=== PATIENT | male | born 1995 | race Hispanic/Latino ===

== ENCOUNTER 2021-11-10 13:30 | Emergency (ER) | payer SELFPAY ==
[2021-11-10] MEDS ORDERED: TETRACAINE HCL 0.5% 4ML OPTH ONE (13:49)
[2021-11-10] MEDS ORDERED: FLUORESCEIN SODIUM 1 MG/WRAP ONE (13:52)
--- NOTE | 2021-11-10 14:01 | ER ---
Nurse's Notes [facility] Name: Miguel Ángel Carl Age: 26 yrs Sex: Male : 1995 Arrival Date: 11/10/2021 Time: 13:32 Bed 12 Private MD: Diagnosis: Unspecified acute conjunctivitis, left eye Presentation: 11/10 13:40 Chief complaint: Patient states: pt presented to ED reporting left eye pain, redness vanegas and as if something is inside the eye. Coronavirus screen: Vaccine status: Patient reports being unvaccinated. Ebola Screen: Patient denies travel to an Ebola-affected area in the 21 days before illness onset. Mechanism of Injury: No Mechanism of Injury. The patient reports a positive loss of vision. The patient's loss of vision began gradually. Initial Sepsis Screen: Does the patient meet any 2 criteria? No. Patient's initial sepsis screen is negative. Does the patient have a suspected source of infection? No. Patient's initial sepsis screen is negative. Risk Assessment: Do you want to hurt yourself or someone else? Patient reports no desire to harm self or others. Onset of symptoms was November 10, 2021. 13:40 Method Of Arrival: Ambulatory vanegas 13:40 Acuity: MICHAEL 4 vanegas Triage Assessment: 13:42 General: Appears in no apparent distress. General: Behavior is calm, cooperative. Pain: vanegas Complains of pain in left eye. EENT: Reports blurred vision in left outer canthus, outer aspect of conjuctiva of left eye, iris of left eye, inner aspect of conjunctiva of left eye and left inner canthus pain. Historical: - Allergies: 13:42 No Known Allergies; vanegas - Home Meds: 13:42 None [Active]; vanegas - PMHx: 13:42 None; vanegas - PSHx: 13:42 None; vanegas - Immunization history:: Adult Immunizations up to date. - Social history:: Smoking status: Patient reports the use of cigarette tobacco products, smokes one-half pack cigarettes per day. - Family history:: not pertinent. - Hospitalizations: : No recent hospitalization is reported. Screenin:09 Abuse screen: Denies threats or abuse. Denies injuries from another. Nutritional vanegas screening: No deficits noted. Tuberculosis screening: No symptoms or risk factors identified. Fall Risk None identified. Assessment: 14:09 EENT: Eyes are tearing on outer aspect of conjuctiva of left eye, iris of left eye and vanegas inner aspect of conjunctiva of left eye Sclera/Cornea are reddened in outer aspect of conjuctiva of left eye, iris of left eye and inner aspect of conjunctiva of left eye. Vital Signs: 13:40 BP 121 / 71; Pulse 70; Resp 18; Temp 97.4; Pulse Ox 99% ; Weight 97.52 kg; Height 5 ft. vanegas 9 in. (175.26 cm); 13:40 Body Mass Index 31.75 (97.52 kg, 175.26 cm) vanegas ED Course: 13:32 Patient arrived in ED. kz 13:42 Triage completed. vanegas 13:44 Jung Tee MD is Attending Physician. rn 14:01 Cha Villalpando MD is Referral Physician. rn 14:07 Yudy Joseph RN is Primary Nurse. iw 14:09 Patient has correct armband on for positive identification. vanegas 14:09 No provider procedures requiring assistance completed. vanegas 14:10 Arm band placed on. vanegas 14:14 Patient did not have IV access during this emergency room visit. iw Administered Medications: No medications were administered Outcome: 14:01 Discharge ordered by . rn 14:13 Discharged to home ambulatory. iw 14:13 Condition: good 14:13 Discharge instructions given to patient, Instructed on discharge instructions, follow up and referral plans. medication usage, Demonstrated understanding of instructions, follow-up care, medications, Prescriptions given X 2. 14:14 Patient left the ED. iw Signatures: Yudy Joseph, RN HARSHA Jung Tee MD MD rn Au-Stager, Heather, RN RN ha Zapata, Kelly kjourdan
--- NOTE | 2021-11-10 14:02 | EDPHYS ---
Physician Documentation [facility] Name: Miguel Ángel Carl Age: 26 yrs Sex: Male : 1995 Arrival Date: 11/10/2021 Time: 13:32 Bed 12 Private MD: ED Physician Jung Tee HPI: 11/10 13:56 This 26 yrs old Male presents to ER via Ambulatory with complaints of Eye Pain - Left. rn 13:56 The patient is experiencing foreign body sensation, pain, redness, tearing, The patient rn sustained None. to the left eye, caused by an unknown mechanism. Onset: The symptoms/episode began/occurred yesterday. Duration: the symptoms are continuous. Aggravated by rubbing, Alleviated by nothing. Associated signs and symptoms: Pertinent positives: None. Pertinent negatives: fever, headache, runny nose. Patient does not utilize any form of vision correction. Severity of symptoms: At their worst the symptoms were moderate in the emergency department the symptoms are unchanged. The patient has not experienced similar symptoms in the past. The patient has not recently seen a physician. Pt reports left eye redness and foreign body sensation after got home from work yesterday. Denies any injury or splash to eye, states wears goggles/eye protection at work, but eye did not start to hurt until got home from work. No vision changes. No fever. No headache. Reports watery eye. . Historical: - Allergies: 13:42 No Known Allergies; vanegas - Home Meds: 13:42 None [Active]; vanegas - PMHx: 13:42 None; vanegas - PSHx: 13:42 None; vanegas - Immunization history:: Adult Immunizations up to date. - Social history:: Smoking status: Patient reports the use of cigarette tobacco products, smokes one-half pack cigarettes per day. - Family history:: not pertinent. - Hospitalizations: : No recent hospitalization is reported. ROS: 13:56 Constitutional: Negative for fever, chills, and weight loss, Eyes: + left eye redness rn and drainage. ENT: Negative for injury, pain, and discharge, Neck: Negative for injury, pain, and swelling, Neuro: Negative for headache, weakness, numbness, tingling, and seizure. Exam: 13:56 Constitutional: This is a well developed, well nourished patient who is awake, alert, rn and in no acute distress. Head/Face: Normocephalic, atraumatic. Eyes: +injected left conjunctiva, no fluorescein uptake on exam, no foreign body, pain resolved with tetracaine. Tonopen used to measure IOP, was 20. Vital Signs: 13:40 BP 121 / 71; Pulse 70; Resp 18; Temp 97.4; Pulse Ox 99% ; Weight 97.52 kg; Height 5 ft. vanegas 9 in. (175.26 cm); 13:40 Body Mass Index 31.75 (97.52 kg, 175.26 cm) vanegas MDM: 13:44 Patient medically screened. rn 13:56 Differential diagnosis: Corneal abrasion of Foreign body in left eye. Acute glaucoma in rn Data reviewed: vital signs, nurses notes, and as a result, I will discharge patient. Counseling: I had a detailed discussion with the patient and/or guardian regarding: the historical points, exam findings, and any diagnostic results supporting the discharge/admit diagnosis, the need for outpatient follow up, to return to the emergency department if symptoms worsen or persist or if there are any questions or concerns that arise at home. Response to treatment: the patient's symptoms have markedly improved after treatment, and as a result, I will discharge patient. Special discussion: I discussed with the patient/guardian in detail that at this point there is no indication for admission to the hospital. It is understood, however, that if the symptoms persist or worsen the patient needs to return immediately for re-evaluation. ED course: Eye irrigated by me with saline, patient states feels much better. Will dc home with ophtho f/u. . Administered Medications: No medications were administered Disposition Summary: 11/10/21 14:01 Discharge Ordered Location: Home rn Problem: new rn Symptoms: have improved rn Condition: Stable rn Diagnosis - Unspecified acute conjunctivitis, left eye rn Followup: rn - With: Cha Villalpando MD - When: As needed - Reason: Recheck today's complaints, Re-evaluation by your physician Discharge Instructions: - Discharge Summary Sheet rn - Allergic Conjunctivitis, Adult rn - Chemical Conjunctivitis, Adult rn - How to Use Eye Drops and Eye Ointments rn - Viral Conjunctivitis, Adult rn Forms: - Medication Reconciliation Form rn - Thank You Letter rn - Antibiotic ornament setter - Prescription Opioid Use rn Prescriptions: - Vigamox 0.5 % Ophthalmic Drops - instill 1 drop by OPHTHALMIC route every 8 hours for 7 days; 5 milliliter; rn Refills: 0, Product Selection Permitted - Acular 0.5 % Ophthalmic Drops - instill 1 drop by OPHTHALMIC route every 6 hours into affected eye(s); 5 rn milliliter; Refills: 0, Product Selection Permitted Signatures: Jung Tee MD MD rn Erika Barry RN RN vanegas
[2021-11-10 14:19] VITALS: BP 121/71; TEMP 97.4; O2SAT 99
== END 2021-11-10 14:14 | disposition home or self-care (01) ==
LOC: ER 13:30
DX: H10.32 Unspecified acute conjunctivitis, left eye (principal); F17.210 Nicotine dependence, cigarettes, uncomplicated
CPT/HCPCS: 99282

== ENCOUNTER 2023-04-24 11:52 | Emergency (ER) | payer SELFPAY ==
[2023-04-24] MEDS ORDERED: FLUORESCEIN SODIUM 1 MG/WRAP ONE (12:35)
[2023-04-24] MEDS ORDERED: TETRACAINE HCL 0.5% 4ML OPTH ONE (12:35)
--- NOTE | 2023-04-24 12:58 | EDPHYS ---
Physician Documentation [facility] Name: Miguel Ángel Carl Age: 27 yrs Sex: Male : 1995 Arrival Date: 04/24/2023 Time: 11:52 Bed 7 Private MD: ED Physician Tata Johnson HPI: 04/24 13:37 This 27 yrs old Male presents to ER via Ambulatory with complaints of Eye kb Injury, Eye Pain. 13:38 The patient is experiencing pain, redness, The patient sustained None. to the left eye. kb Onset: The symptoms/episode began/occurred 3 day(s) ago. Duration: the symptoms are continuous. Aggravated by nothing. Alleviated by nothing. Associated signs and symptoms: Pertinent positives: None. Pertinent negatives: None. Severity of symptoms: At their worst the symptoms were moderate in the emergency department the symptoms are unchanged. The patient has not experienced similar symptoms in the past. The patient has not recently seen a physician. Pt reports redness and pain to left eye that started Peter. 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 States he forgot to lower his shield . Historical: - Allergies: 12:21 No Known Allergies; iw - Home Meds: 12:21 None [Active]; iw - PMHx: 12:21 None; iw - PSHx: 12:21 None; iw - Immunization history:: Adult Immunizations. - Social history:: Smoking status: unknown. ROS: 13:36 Constitutional: Negative for fever, chills, and weight loss. kb 13:36 Eyes: Positive for pain, redness. 13:36 All other systems are negative. Exam: 13:36 Constitutional: This is a well developed, well nourished patient who is awake, alert, kb and in no acute distress. Head/Face: Normocephalic, atraumatic. Cardiovascular: Regular rate and rhythm with a normal S1 and S2. No gallops, murmurs, or rubs. No pulse deficits. Respiratory: Respirations even and unlabored. No increased work of breathing. Talking in full sentences Skin: Warm, dry with normal turgor. Normal color. MS/ Extremity: Pulses equal, no cyanosis. Neurovascular intact. Full, normal range of motion. Neuro: Awake and alert, GCS 15, oriented to person, place, time, and situation. Moves all extremities. Normal gait. 13:36 Eyes: Periorbital structures: appear normal, Pupils: equal, round, and reactive to light and accomodation, Extraocular movements: intact throughout, Conjunctiva: injected, in the left eye, Corneas: abrasion, is not appreciated, foreign body, is not appreciated, a fluorescein strip employed to appreciate the findings. Vital Signs: 12:19 BP 136 / 74; Pulse 83; Resp 16; Temp 98.1; Pulse Ox 99% on R/A; iw MDM: 12:02 Patient medically screened. kb 13:37 Differential diagnosis: Corneal abrasion of Corneal ulcer of Foreign body in kb Ultraviolet keratitis in left eye. Data reviewed: vital signs, nurses notes. Counseling: I had a detailed discussion with the patient and/or guardian regarding the historical points, exam findings, and any diagnostic results supporting the discharge/admit diagnosis, the need for outpatient follow up, an opthalmologist, to return to the emergency department if symptoms worsen or persist or if there are any questions or concerns that arise at home. 04/24 12:08 Order name: Eye Tray; Complete Time: 12:24 kb 04/24 12:08 Order name: Fluoresene Opth strip; Complete Time: 12:24 kb Administered Medications: 12:31 Drug: Tetracaine Ophthalmic Drops 0.5 % 1 drops Route: Ophthalmic; Site: left eye; Disposition Summary: 04/24/23 12:57 Discharge Ordered Location: Home kb Condition: Stable kb Diagnosis - Unspecified conjunctivitis kb Followup: kb - With: Emergency Department - When: As needed - Reason: Worsening of condition Followup: kb - With: Private Physician - When: 2 - 3 days - Reason: Recheck today's complaints, Continuance of care, Re-evaluation by your physician Discharge Instructions: - Discharge Summary Sheet kb - Ultraviolet Keratitis, [id number] kb - Bacterial Conjunctivitis, Adult, [id number] kb Forms: - Medication Reconciliation Form kb - Thank You Letter kb - Antibiotic Education kb - Prescription Opioid Use kb - Patient Portal Instructions kb - Leadership Thank You Letter kb Prescriptions: - Erythromycin 5 mg/gram (0.5 %) Ophthalmic Ointment - apply 1 centimeter by OPHTHALMIC route 2-3 times daily for 7 days; 1 unit; Refills: 0, Product Selection Permitted Signatures: Gisel Bradford FNP-C [employer] WORKER-Ckb Yudy Joseph, RN RN iw Erika Stevenson, RN RN hb
--- NOTE | 2023-04-24 12:58 | ER ---
Nurse's Notes 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 Coronavirus screen: At this time, the client does not indicate any symptoms associated with coronavirus-19. Ebola Screen: Patient negative for fever greater than or equal to 101.5 degrees Fahrenheit, and additional compatible Ebola Virus Disease symptoms Patient denies exposure to infectious person. Patient denies travel to an Ebola-affected area in the 21 days before illness onset. No symptoms or risks identified at this time. The patient denies any loss of vision. Initial Sepsis Screen: Does the patient meet any 2 criteria? No. Patient's initial sepsis screen is negative. Does the patient have a suspected source of infection? No. Patient's initial sepsis screen is negative. Risk Assessment: Do you want to hurt yourself or someone else? Patient reports no desire to harm self or others. 12:19 Method Of Arrival: Ambulatory iw 12:19 Acuity: MICHAEL 4 iw Historical: - Allergies: 12:21 No Known Allergies; iw - Home Meds: 12:21 None [Active]; iw - PMHx: 12:21 None; iw - PSHx: 12:21 None; iw - Immunization history:: Adult Immunizations. - Social history:: Smoking status: unknown. Screenin:22 [facility] ED Fall Risk Assessment (Adult) Score/Fall Risk Level 0 - 2 = Low Risk hb Oriented to surroundings, Maintained a safe environment. Abuse screen: Denies threats or abuse. Denies injuries from another. Nutritional screening: No deficits noted. Tuberculosis screening: No symptoms or risk factors identified. Assessment: 12:22 General: Appears in no apparent distress. Behavior is calm, cooperative. Pain: Pain hb currently is 3 out of 10 on a pain scale. Neuro: Level of Consciousness is awake, alert, obeys commands, Oriented to person, place, time, situation. Cardiovascular: Patient's skin is warm and dry. Respiratory: Respiratory effort is even, unlabored, Respiratory pattern is regular, symmetrical. GI: No signs and/or symptoms were reported involving the gastrointestinal system. : No signs and/or symptoms were reported regarding the genitourinary system. EENT: Reports left eye pain, redness, and discharge . Derm: Skin is pink, warm \T\ dry. Musculoskeletal: No signs and/or symptoms reported regarding the musculoskeletal system. 13:02 Reassessment: Patient appears in no apparent distress at this time. Patient and/or hb family updated on plan of care and expected duration. Pain level reassessed. Patient is alert, oriented x 3, equal unlabored respirations, skin warm/dry/pink. Vital Signs: 12:19 BP 136 / 74; Pulse 83; Resp 16; Temp 98.1; Pulse Ox 99% on R/A; iw ED Course: 11:54 Patient arrived in ED. ts1 12:02 Gisel Bradford FNP-C is [facility]. kb 12:02 Tata Johnson MD is Attending Physician. kb 12:21 Triage completed. iw 12:21 Arm band placed on. iw 12:22 Patient has correct armband on for positive identification. Provided Education on: . hb 12:24 Erika Stevenson, RN is Primary Nurse. hb 13:02 No provider procedures requiring assistance completed. Patient did not have IV access hb during this emergency room visit. Administered Medications: 12:31 Drug: Tetracaine Ophthalmic Drops 0.5 % 1 drops Route: Ophthalmic; Site: left eye; hb Medication: 12:22 VIS not applicable for this client. hb Outcome: 12:57 Discharge ordered by . kb 13:02 Discharged to home ambulatory. hb 13:02 Condition: stable 13:02 Discharge instructions given to patient, Instructed on discharge instructions, follow up and referral plans. medication usage, Demonstrated understanding of instructions, follow-up care, medications, Prescriptions given X 1. 13:14 Patient left the ED. hb Signatures: Gisel Bradford FNP-C FNP-Ckb Williams, Irene, RN RN Erika Stevenson RN RN Diana Avendano, ANA PAS ts1
[2023-04-24 13:20] VITALS: BP 136/74; TEMP 98.1; O2SAT 99
== END 2023-04-24 13:14 | disposition home or self-care (01) ==
LOC: ER 11:52
DX: H10.9 Unspecified conjunctivitis (principal)
CPT/HCPCS: 99283

== ENCOUNTER 2023-04-26 16:17 | Emergency (ER) | payer SELFPAY ==
--- NOTE | 2023-04-26 16:45 | EDPHYS ---
Physician Documentation [facility] Name: Miguel Ángel Carl Age: 27 yrs Sex: Male : 1995 Arrival Date: 04/26/2023 Time: 16:17 Bed 12 Private MD: ED Physician Erasmo Mccarty HPI: 04/26 16:52 This 27 yrs old Male presents to ER via Ambulatory with complaints of Eye cp3 Problem. 16:52 Patient is a 27-year-old male who was seen in the ED 2 days ago for a left cp3 conjunctivitis and keratitis who endorses that the pain is improved and photophobia is improved with the antibiotic ointment that we prescribed for his eye is making his vision blurry wants to see if he can change that out. Patient endorses improved redness. No fever, chills, nausea, vomiting. The patient has not experienced similar symptoms in the past. The patient has been recently seen at the [facility] Emergency Department, this week. Historical: - Allergies: 16:25 No Known Allergies; iw - Home Meds: 16:25 None [Active]; iw - PMHx: 16:25 None; iw - Immunization history:: Adult Immunizations up to date. - Social history:: Smoking status: Patient denies any tobacco usage or history of. - Family history:: not pertinent. - Hospitalizations: : No recent hospitalization is reported. - History obtained from: Spoke with provider who cared for patient. Discharge with erythromycin ointment. Mild uptake on fluorescein exam. ROS: 16:52 Constitutional: Negative for fever, chills, and weight loss, ENT: Negative for injury, cp3 pain, and discharge, Neck: Negative for injury, pain, and swelling, Cardiovascular: Negative for chest pain, palpitations, and edema, Respiratory: Negative for shortness of breath, cough, wheezing, and pleuritic chest pain, Abdomen/GI: Negative for abdominal pain, nausea, vomiting, diarrhea, and constipation, Back: Negative for injury and pain, MS/Extremity: Negative for injury and deformity, Skin: Negative for injury, rash, and discoloration, Neuro: Negative for headache, weakness, numbness, tingling, and seizure, Psych: Negative for depression, anxiety, suicide ideation, homicidal ideation, and hallucinations, Allergy/Immunology: Negative for hives, rash, and allergies, Endocrine: Negative for neck swelling, polydipsia, polyuria, polyphagia, and marked weight changes, Hematologic/Lymphatic: Negative for swollen nodes, abnormal bleeding, and unusual bruising. 16:52 Eyes: Positive for blurry vision, pain, photophobia, redness. cp3 Exam: 16:52 Visual Acuity: I have reviewed the nursing documentation. cp3 16:52 Constitutional: This is a well developed, well nourished patient who is awake, alert, and in no acute distress. Head/Face: Normocephalic, atraumatic. ENT: Nares patent. No nasal discharge, no septal abnormalities noted. Tympanic membranes are normal and external auditory canals are clear. Oropharynx with no redness, swelling, or masses, exudates, or evidence of obstruction, uvula midline. Mucous membranes moist. Neck: Trachea midline, no thyromegaly or masses palpated, and no cervical lymphadenopathy. Supple, full range of motion without nuchal rigidity, or vertebral point tenderness. No Meningismus. Chest/axilla: Normal chest wall appearance and motion. Nontender with no deformity. No lesions are appreciated. Cardiovascular: Regular rate and rhythm with a normal S1 and S2. No gallops, murmurs, or rubs. Normal PMI, no JVD. No pulse deficits. Respiratory: Lungs have equal breath sounds bilaterally, clear to auscultation and percussion. No rales, rhonchi or wheezes noted. No increased work of breathing, no retractions or nasal flaring. Abdomen/GI: Soft, non-tender, with normal bowel sounds. No distension or tympany. No guarding or rebound. No evidence of tenderness throughout. Back: No spinal tenderness. No costovertebral tenderness. Full range of motion. 16:52 Eyes: Pupils: equal, round, and reactive to light and accomodation, Extraocular movements: intact throughout, Conjunctiva: injected, Corneas: abrasion, Sclera: Vital Signs: 16:24 BP 133 / 70; Pulse 82; Resp 16; Temp 98.1; Pulse Ox 100% on R/A; Weight 99.79 kg; iw Height 5 ft. 10 in. ; 16:24 Body Mass Index 31.57 (99.79 kg, 177.8 cm) iw MDM: 16:21 Patient medically screened. cp3 16:52 Differential diagnosis: Corneal abrasion of Chemical conjunctivitis in left eye. cp3 16:52 Data reviewed: vital signs, nurses notes. cp3 Administered Medications: No medications were administered Disposition Summary: 04/26/23 16:45 Discharge Ordered Location: Home cp3 Condition: Stable cp3 Diagnosis - Unspecified conjunctivitis cp3 - Photokeratitis, left eye cp3 Discharge Instructions: - Discharge Summary Sheet cp3 - Chemical Conjunctivitis, Adult cp3 - Ultraviolet Keratitis, [id number] cp3 Forms: - Medication Reconciliation Form cp3 - Thank You Letter cp3 - Antibiotic Education cp3 - Prescription Opioid Use cp3 - Patient Portal Instructions cp3 - Leadership Thank You Letter cp3 Prescriptions: - Tobradex - use 2 drop by OPHTHALMIC route 3 times per day for 5 days; 5 milliliter; cp3 Refills: 0, Product Selection Permitted Signatures: Erasmo Mccarty MD MD cp3 Yudy Joseph RN RN iw Breneman, Rola Del Rio RN RN mb9
--- NOTE | 2023-04-26 16:45 | ER ---
Nurse's Notes [facility] Name: Miguel Ángel Carl Age: 27 yrs Sex: Male : 1995 Arrival Date: 04/26/2023 Time: 16:17 Bed 12 Private MD: Diagnosis: Unspecified conjunctivitis;Photokeratitis, left eye Presentation: 04/26 16:24 Chief complaint: Patient states: was seen here on Tuesday and prescribed antibiotic eye iw drops for conjunctivitis in let eye, not getting better , vision is blurry , was also diagnosed with UV Keratitis from welding. Coronavirus screen: At this time, the client does not indicate any symptoms associated with coronavirus-19. Ebola Screen: Patient negative for fever greater than or equal to 101.5 degrees Fahrenheit, and additional compatible Ebola Virus Disease symptoms Patient denies exposure to infectious person. Patient denies travel to an Ebola-affected area in the 21 days before illness onset. No symptoms or risks identified at this time. Initial Sepsis Screen: Does the patient meet any 2 criteria? No. Patient's initial sepsis screen is negative. Does the patient have a suspected source of infection? No. Patient's initial sepsis screen is negative. Risk Assessment: Do you want to hurt yourself or someone else? Patient reports no desire to harm self or others. Onset of symptoms was April 22, 2023. 16:24 Method Of Arrival: Ambulatory iw 16:24 Acuity: MICHAEL 4 iw Historical: - Allergies: 16:25 No Known Allergies; iw - Home Meds: 16:25 None [Active]; iw - PMHx: 16:25 None; iw - Immunization history:: Adult Immunizations up to date. - Social history:: Smoking status: Patient denies any tobacco usage or history of. - Family history:: not pertinent. - Hospitalizations: : No recent hospitalization is reported. - History obtained from: Spoke with provider who cared for patient. Discharge with erythromycin ointment. Mild uptake on fluorescein exam. Screenin:28 [facility] ED Fall Risk Assessment (Adult) History of falling in the last 3 months, mb9 including since admission No falls in past 3 months (0 pts) Confusion or Disorientation No (0 pts) Intoxicated or Sedated No (0 pts) Impaired Gait No (0 pts) Mobility Assist Device Used No (0 pt) Altered Elimination No (0 pt) Score/Fall Risk Level 0 - 2 = Low Risk Oriented to surroundings, Maintained a safe environment, Educated pt \T\ family on fall prevention, incl call for assistance when getting out of bed. Abuse screen: Denies threats or abuse. Nutritional screening: No deficits noted. Tuberculosis screening: No symptoms or risk factors identified. Assessment: 16:43 General: Appears in no apparent distress. Behavior is calm, cooperative. Pain: Denies mb9 pain. Neuro: Morrison Agitation-Sedation Scale (RASS): 0 - Alert and Calm Level of Consciousness is awake, alert, obeys commands, Oriented to person, place, time, situation, Appropriate for age. Cardiovascular: Patient's skin is warm and dry. Respiratory: Airway is patent Respiratory effort is even, unlabored, Respiratory pattern is regular, symmetrical, Breath sounds are clear bilaterally. GI: No signs and/or symptoms were reported involving the gastrointestinal system. : No signs and/or symptoms were reported regarding the genitourinary system. EENT: Sclera/Cornea are reddened in outer aspect of conjuctiva of left eye, iris of left eye and inner aspect of conjunctiva of left eye. Derm: Skin is pink, warm \T\ dry. Musculoskeletal: Range of motion: intact in all extremities. Vital Signs: 16:24 BP 133 / 70; Pulse 82; Resp 16; Temp 98.1; Pulse Ox 100% on R/A; Weight 99.79 kg; iw Height 5 ft. 10 in. ; 16:24 Body Mass Index 31.57 (99.79 kg, 177.8 cm) iw ED Course: 16:21 Patient arrived in ED. mg5 16:21 Erasmo Mccarty MD is Attending Physician. cp3 16:25 Triage completed. iw 16:25 Arm band placed on. iw 16:28 Rola Anderson RN is Primary Nurse. mb9 16:29 Placed in gown. Bed in low position. Call light in reach. Side rails up X 1. Client mb9 placed on continuous cardiac and pulse oximetry monitoring. NIBP monitoring applied. 16:29 No provider procedures requiring assistance completed. mb9 16:55 Patient did not have IV access during this emergency room visit. mb9 Administered Medications: No medications were administered Medication: 16:29 VIS not applicable for this client. mb9 Outcome: 16:45 Discharge ordered by . cp3 16:55 Discharged to home ambulatory. mb9 16:55 Condition: stable 16:55 Discharge instructions given to patient, Instructed on discharge instructions, follow up and referral plans. Demonstrated understanding of instructions, follow-up care, medications, Prescriptions given X 1. 16:55 Patient left the ED. mb9 Signatures: Erasmo Mccarty MD MD cp3 Yudy Joseph RN RN Rola Oliveira RN RN mb9 Susan Caputo mg5 Corrections: (The following items were deleted from the chart) 16:27 16:24 Chief complaint: Patient states: was seen here on Tuesday and prescribed iw antibiotic eye drops for conjunctivitis in let eye, not getting better , vision is blurry iw
[2023-04-26 17:30] VITALS: BP 133/70; TEMP 98.1; O2SAT 100
== END 2023-04-26 16:55 | disposition home or self-care (01) ==
LOC: ER 16:17
DX: H10.9 Unspecified conjunctivitis (principal); H16.132 Photokeratitis, left eye
CPT/HCPCS: 99283